=== PATIENT | male | born 1980 ===

== ENCOUNTER 2021-01-06 04:19 | Emergency (ER) | payer SELFPAY ==
[~2021-01-06] VITALS: Ht 167.6 cm; Wt 75.0 kg
--- NOTE | 2021-01-06 06:20 | NUR ---
PT BACK TO ROOM AT THIS TIME. CHANGED INTO GOWN, RESTING ON GURNEY, FAMILY AT BS. PLACED ON SPO2/BP MONITORING, BED IN LOWEST, RAILS ENGAGED, CALL LIGHT ON LAP, WCTM. PT CAME INTO ED THIS AM FOR ABDOMINAL PAIN, PRIMARLY ON THE RIGHT SIDE UPPER AND LOWER QUADRANT, DENIES N/V/D, LAST BM YESTERDAY, PAIN IN STOMACH X2DAYS. PT REPORTS WHEN ITS BAD IT RADIATES TO BACK, DENIES BURNING ON URINATION, NAD.
--- NOTE | 2021-01-06 06:53 | NUR ---
REPORT TO JIMMIE JAQUEZ, PT CARE TRANSFERRED AT THIS TIME.
[2021-01-06] MEDS ORDERED: ONDANSETRON 2MG/ML, 2ML ONE (06:59)
[2021-01-06] MEDS ORDERED: MORPHINE SULFATE 4 MG/ML, 1ML ONE (06:59)
[2021-01-06] MEDS ORDERED: SODIUM CHLORIDE FLUSH 10ML SYR IVF ONE (07:00)
[2021-01-06] MEDS ORDERED: ONDANSETRON 2MG/ML, 2ML IVPush ONE (07:00)
[2021-01-06] MEDS ORDERED: SODIUM CHLORIDE 0.9% 1,000ML IVBOLUS ONE (07:00)
[2021-01-06] MEDS ORDERED: MORPHINE SULFATE 4 MG/ML, 1ML IVPush PRN (07:00)
[2021-01-06] MEDS ORDERED: SODIUM CHLORIDE 0.9% 1,000 ML IV ONE (07:00)
--- NOTE | 2021-01-06 07:07 | NUR ---
PT RESTING IN BED, OCCASIONALLY MOANS. REPORTS PAIN ON RT SIDE OF ABDOMEN. PT MEDICATED PER EMAR. RESPIRATIONS EVEN AND UNLABORED ON RA. SIDE RAIL UP, CALL LIGHT IN REACH. PT AWARE OF NEED FOR UA.
[2021-01-06 07:28] LABS: EOSINOPHILS % (AUTO) 2 % (1-7); MEAN PLATELET VOLUME 8.1 fL (7.4-10.4); RED BLOOD COUNT 5.15 x10^6/uL (4.38-5.82)
[2021-01-06 07:32] LABS: ANION GAP 3 mmol/L (5-15); CALCIUM 9.3 mg/dL (8.5-10.1); CHLORIDE 104 mmol/L (98-107)
[2021-01-06 07:35] LABS: ALANINE AMINOTRANSFERASE 56 U/L (12-78); ALKALINE PHOSPHATASE 122 U/L (45-117); BILIRUBIN,TOTAL 0.9 mg/dL (0.2-1.0); CREATININE 0.85 mg/dL (0.7-1.3); TOTAL PROTEIN 8.4 g/dL (6.4-8.2)
[2021-01-06 07:43] LABS: BASOPHILS % (AUTO) 1 % (0-1); LYMPHOCYTES % (AUTO) 27 % (22-44); MEAN CORPUSCULAR HEMOGLOBIN 33.1 pg (27.5-34.5); MEAN CORPUSCULAR HGB CONC 35.6 g/dL (33.2-36.2); MONOCYTES % (AUTO) 6 % (2-9); NEUTROPHILS % (AUTO) 64 % (42-75); PLATELET COUNT 284 x10^3/uL (130-400); RED CELL DISTRIBUTION WIDTH 13.2 % (9.4-14.8)
[2021-01-06] MEDS ORDERED: OMNIPAQUE 350 MG/ML, 100ML BOTTLE ONE (08:18)
--- NOTE | 2021-01-06 08:25 | NUR ---
PT GIVEN PO FLUIDS FOR PO FLUID CHALLENGE. NAD NOTED AT THIS TIME. PT WAS RESTING WITH EYES CLOSED UPON RN ENTRY TO ROOM.
--- NOTE | 2021-01-06 09:20 | NUR ---
PT TOLERATING PO FLUIDS WELL.
[2021-01-06 10:05] VITALS: BP 109/59
[2021-01-06 10:19] LABS: MICROSCOPIC NOT IND
== END 2021-01-06 10:07 | disposition home or self-care (01) ==
LOC: ED 08:43
DX: R10.11 Right upper quadrant pain (principal); F17.200 Nicotine dependence, unspecified, uncomplicated
CPT/HCPCS: 36415; 74177; 80053; 81003; 83690; 85025; 96361; 96374; 96375; 99285; J2270; J2405; J7030; Q9967